=== PATIENT | female | born 1950 | race African-American/Black ===

== ENCOUNTER 2021-09-01 04:33 | Day surgery (SDC) | payer OTHER ==
[2021-08-25 14:43] VITALS: BMI 29.7
[2021-09-01 09:09] VITALS: TEMP 97
[2021-09-01] MEDS ORDERED: hydrALAZINE HCL 20 MG/ML VIAL ONE (09:26)
[2021-09-01] MEDS ORDERED: hydrALAZINE HCL 20 MG/ML VIAL IVPUSH ONE (09:45)
[2021-09-01 09:59] VITALS: PULSE 63
[2021-09-01] MEDS ORDERED: hydrALAZINE HCL 20 MG/ML VIAL IVPUSH SCH (10:00)
[2021-09-01 10:42] VITALS: BP 156/67
== END 2021-09-01 10:43 | disposition home or self-care (01) ==
LOC: JASU-ENDO 04:33
PROVIDERS: ATTEND Internal Medicine Gastroenterology
PROC: 0DBL8ZX Excision of Transverse Colon, Via Natural or Artificial Opening Endoscopic, Diagnostic (ICD-10-PCS; 2021-09-01)
PROC: 0DB68ZX Excision of Stomach, Via Natural or Artificial Opening Endoscopic, Diagnostic (ICD-10-PCS; 2021-09-01)
PROC: 0DB78ZX Excision of Stomach, Pylorus, Via Natural or Artificial Opening Endoscopic, Diagnostic (ICD-10-PCS; 2021-09-01)
PROC: 0DBN8ZX Excision of Sigmoid Colon, Via Natural or Artificial Opening Endoscopic, Diagnostic (ICD-10-PCS; principal; 2021-09-01 08:00)
DX: Z12.11 Encounter for screening for malignant neoplasm of colon (principal); Z86.010 Personal history of colon polyps; K63.89 Other specified diseases of intestine; K57.30 Diverticulosis of large intestine without perforation or abscess without bleeding; K64.8 Other hemorrhoids; D12.5 Benign neoplasm of sigmoid colon; D12.3 Benign neoplasm of transverse colon; K29.50 Unspecified chronic gastritis without bleeding; K44.9 Diaphragmatic hernia without obstruction or gangrene; E11.9 Type 2 diabetes mellitus without complications
CPT/HCPCS: 88305-TC; 88342-TC

== ENCOUNTER 2024-01-24 05:10 | Day surgery (SDC) | payer OTHER ==
[2024-01-23 12:16] VITALS: BMI 28.3
[2024-01-24 09:31] VITALS: TEMP 98
[2024-01-24 11:40] VITALS: RESP 18
[2024-01-24 11:49] VITALS: BP 155/65; PULSE 71
== END 2024-01-24 11:50 | disposition home or self-care (01) ==
LOC: JASU-ENDO 05:10
PROVIDERS: ATTEND Internal Medicine Gastroenterology
PROC: 0DJD8ZZ Inspection of Lower Intestinal Tract, Via Natural or Artificial Opening Endoscopic (ICD-10-PCS; principal; 2024-01-24 09:30)
DX: Z12.11 Encounter for screening for malignant neoplasm of colon (principal); K57.30 Diverticulosis of large intestine without perforation or abscess without bleeding; K64.8 Other hemorrhoids; K59.89 Other specified functional intestinal disorders
CPT/HCPCS: 82962